=== PATIENT | male | born 1980 | race Caucasian/White ===

== ENCOUNTER 2024-01-15 07:58 | Outpatient (CLI) | payer OTHER | END 2024-01-15 23:59 | disposition home or self-care (01) | LOC: MRI02 07:58 | PROVIDERS: ATTEND Podiatrist Foot & Ankle Surgery | DX: S93.402A Sprain of unspecified ligament of left ankle, initial encounter (principal); M25.472 Effusion, left ankle; T14.8XXA Other injury of unspecified body region, initial encounter; X58.XXXA Exposure to other specified factors, initial encounter; Y93.89 Activity, other specified; Y92.89 Other specified places as the place of occurrence of the external cause; Y99.8 Other external cause status | CPT/HCPCS: 73721 ==